=== PATIENT | male | born 1950 | race Caucasian/White ===

== ENCOUNTER 2023-01-20 10:29 | Emergency (ER) | payer MEDICARE, MEDICAID ==
[~2023-01-20] VITALS: Ht 165.1 cm; Wt 66.0 kg
[~2023-01-20 10:29] MED LIST: AMOXICILLIN; AP25; GLIP5TAB3; IBUPROFEN; LASIX; METF500T
[2023-01-20 10:31] VITALS: O2SAT 96
[2023-01-20 11:09] LABS: BASOPHILS % 0.7 % (0.0-2.0); HEMATOCRIT. 42.9 % (42.0-52.0); HEMOGLOBIN. 14.4 g/dL (14.0-18.0); LYMPHOCYTES % 11.6 % (20.0-50.0); MEAN CORPUSCULAR HEMOGLOBIN 31.2 pg (28.0-32.0); MEAN CORPUSCULAR HGB CONC 33.5 g/dL (31.0-37.0); MEAN CORPUSCULAR VOLUME 93.3 fL (80.0-94.0); MEAN PLATELET VOLUME 8.9 fl (7.4-10.4); MONOCYTES % 6.6 % (2.0-8.0); NEUTROPHILS % 80.1 % (40.0-76.0); PLATELET 131 x1000/uL (130-400); RED CELL DISTRIBUTION WIDTH 15.2 % (11.6-14.6); WHITE BLOOD COUNT 5.4 x1000/uL (4.5-11.0)
[2023-01-20 11:18] LABS: CHLORIDE 100 mEq/L (98-107); INDEX HEMOLYSI 1 (1-3); INDEX ICTERIC 1 (1-4); INDEX LIPEMIC 1 (1-3); POTASSIUM 3.6 mEq/L (3.5-5.1); SODIUM 137 mEq/L (136-145)
[2023-01-20 11:25] LABS: ALANINE AMINOTRANSFERASE 27 IU/L (13-61); ALBUMIN 3.6 g/dL (3.4-5.0); ASPARTATE AMINOTRANSFERASE 21 IU/L (15-37); CALCIUM 8.6 mg/dL (8.5-10.1); CARBON DIOXIDE 33 mEq/L (21-32); CREATININE 2.5 mg/dL (0.6-1.3); GLUCOSE 128 mg/dL (70-105); INR 1.1; PROTEIN TOTAL 7.9 g/dL (6.0-8.3); PROTHROMBIN TIME 11.4 sec (9.6-11.0); UREA NITROGEN BLOOD 25 mg/dL (7-21)
[2023-01-20 15:04] VITALS: BP 126/80; PULSE 66; RESP 16; TEMP 98.2
== END 2023-01-20 15:07 | disposition home or self-care (01) ==
LOC: ER 10:29
DX: T82.49XA Other complication of vascular dialysis catheter, initial encounter (principal); I12.0 Hypertensive chronic kidney disease with stage 5 chronic kidney disease or end stage renal disease; E11.22 Type 2 diabetes mellitus with diabetic chronic kidney disease; N18.6 End stage renal disease; Z99.2 Dependence on renal dialysis; Z20.822 Contact with and (suspected) exposure to COVID-19; X58.XXXA Exposure to other specified factors, initial encounter
CPT/HCPCS: 99284; 71045; 87426; 80053; 85025; 85610; 36415; J1642; C9803

== ENCOUNTER 2023-10-28 13:15 | Emergency (ER) | payer MEDICARE, MEDICAID ==
[~2023-10-28] VITALS: Ht 165.1 cm; Wt 69.0 kg
[2023-10-28 13:24] VITALS: BP 130/60; PULSE 88; RESP 16; TEMP 98; O2SAT 94
[2023-10-28] MEDS: ACETAMINOPHEN 325MG TABLET PO ONE (15:35)
[2023-10-28] MEDS: BACITRACIN ZINC OINT UDPKT TOP ONE (15:35)
[2023-10-28] MEDS: TETANUS, DIPHTHERIA, PERTUSSIS VAC/PF 0.5ML (>10YR OLD) IM ONE (15:39)
[2023-10-28] MEDS ORDERED: BO1 TP (16:01)
[2023-10-28] MEDS ORDERED: ACET-2708 MT (16:01)
[2023-10-31] MEDS ORDERED: CHOL400D7 PO (09:05)
[2023-10-31] MEDS ORDERED: TAMS-11 PO (09:05)
[2023-10-31] MEDS ORDERED: OMEP20CA14 PO (09:05)
[2023-10-31] MEDS ORDERED: OMEG-118 PO (09:05)
[2023-10-31] MEDS ORDERED: DOCU-150 PO (09:05)
[2023-10-31] MEDS ORDERED: ASPI-1497 PO (09:05)
[2023-10-31] MEDS ORDERED: ATOR10TA69 PO (09:05)
== END 2023-10-28 16:32 | disposition home or self-care (01) ==
LOC: ER 13:15
DX: S61.412A Laceration without foreign body of left hand, initial encounter (principal); E11.9 Type 2 diabetes mellitus without complications; I10 Essential (primary) hypertension; W22.8XXA Striking against or struck by other objects, initial encounter; Y93.89 Activity, other specified; Y92.89 Other specified places as the place of occurrence of the external cause; Y99.8 Other external cause status
CPT/HCPCS: 12001; 73130; 90471; 90715; 99283